=== PATIENT | female | born 1980 | race Caucasian/White ===

== ENCOUNTER 2016-11-20 10:11 | Outpatient (CLI) | payer MEDICAID ==
[~2016-11-20] VITALS: Ht 157.5 cm; Wt 104.2 kg
[~2016-11-20 10:11] MED LIST: DENIES
[2016-11-20 10:49] VITALS: Ht 157.5 cm; Wt 104.2 kg
[2016-11-20 10:50] VITALS: BP 132/81; PULSE 99
[2016-11-20] MEDS ORDERED: PNV11TAB PO (10:51)
--- NOTE | 2016-11-20 11:44 | RADRPT ---
PROCEDURE: Limited OB ultrasound CLINICAL INDICATION: Ruptured membranes TECHNIQUE: Sonographic evaluation to assess the ANU was performed. Transabdominal imaging of the gravid uterus was performed. COMPARISON: No prior exam is available for comparison. FINDINGS: There is a single live intrauterine with a heart rate of 166 bpm. position is cephalic. The placenta is posterior. The ANU measures 7.5 cm. IMPRESSION: The ANU measures 7.5 cm. RPTAT: HH .Corrina Donahue MD, MD Date Time Electronically viewed and signed by .Corrina Donahue MD, on 11/20/2016 11:44 .G/
[2016-11-20 11:45] LABS: ADD UMIC NO; UR ASCORBIC ACID 40 mg/dL (NEGATIVE); UR BILIRUBIN (Dip) NEGATIVE (NEGATIVE); UR BLOOD (Dip) NEGATIVE (NEGATIVE); UR CLARITY SLIGHTLY CLOUDY (CLEAR); UR COLOR YELLOW (YELLOW); UR GLUCOSE (Dip) NEGATIVE (NEGATIVE); UR KETONES (Dip) NEGATIVE (NEGATIVE); UR LEUKOCYTE ESTERASE (Dip) NEGATIVE Leu/ul (NEGATIVE); UR MUCUS FEW /HPF (NONE SEEN); UR NITRITE (Dip) NEGATIVE (NEGATIVE); UR RBC 1 /HPF (0-5); UR SPECIFIC GRAVITY (Dip) 1.023 (1.003-1.030); UR SQUAMOUS EPITHELIAL CELL FEW /HPF (FEW); UR TOTAL PROTEIN (Dip) NEGATIVE (NEGATIVE); UR UROBILINOGEN (Dip) NEGATIVE (NEGATIVE)
[2016-11-20] MEDS ORDERED: TERBUTALINE 1 ML ONE (12:40)
[2016-11-20] MEDS ORDERED: TERBUTALINE 1 MG/ML INJ SC ONE ×2 (13:00→15:30)
[2016-11-20] MEDS ORDERED: BETAMET NA PHOS/AC(6 MG/ML) 5ML INJ ONE (15:25)
[2016-11-20] MEDS ORDERED: BETAMET NA PHOS/AC(6 MG/ML) 5ML INJ IM ONE (15:30)
--- NOTE | 2016-11-20 16:35 | PN ---
Triage Information Date/Time November 20, 2016 Reason for visit: Uterine contractions Weeks of Gestation 36+ /Para 5 Para 4 Diabetes: none Hypertention: none Additional information 36-year-old female with contractions times over one day Has concern about leakage of fluid Objective Vital Signs Date Time Temp Pulse Resp B/P Pulse Ox O2 Delivery O2 Flow Rate FiO2 11/20/16 10:50 98.2 99 132/81 Heart Rate: 140's Heart Rate Comments reactive Exam long/ closed Results/Medications Results 24 hrs Laboratory Tests Test 11/20/16 11:00 11/20/16 11:52 Urine Color YELLOW Urine Clarity SLIGHTLY CLOUDY A Urine pH 6.0 Urine Specific [place] 1.023 Urine Ketones NEGATIVE Urine Nitrite NEGATIVE Urine Bilirubin NEGATIVE Urine Urobilinogen NEGATIVE Urine Leukocyte Esterase NEGATIVE Urine Microscopic RBC 1 Urine Microscopic WBC 1 Urine Squamous Epithelial Cells FEW Urine Mucus FEW A Urine Hemoglobin NEGATIVE Urine Glucose NEGATIVE Urine Total Protein NEGATIVE Membranes Rupture NEGATIVE Imaging Results The ANU measures 7.5 cm. Disposition: Discharge Assessment/Plan ROM plus test is negative, amniotic fluid index is 7.5 Uterine contractions subsided after subcutaneous terbutaline injection 2 We will DC home with follow-up as outpatient Referred back to OB triage for second dose of steroids, and ORIF uterine contractions or rupture of membranes are clear Continue bed on pelvic rest until delivery JANAY CLAY MD Nov 20, 2016 16:35
--- NOTE | 2016-11-20 18:59 | TRIAGE ---
OB Triage Datetime Report Generated by CPN: 11/20/2016 18:59 Datetime: 11/20/2016 16:44 Stage of : OB Triage Datetime: 11/20/2016 15:55 Labor Evaluation Frequency: 0 Monitor Mode: External Pattern: Normal: <= 5 Contractions in 10 Minutes Resting Tone [place]: Relaxed Heart Rate FHR Baseline Rate: 145 Monitor Mode: External US Variability: Moderate 6-25 bpm Accelerations: 10X10 Decelerations: None Category: Category I Pain Assessment Pain Scale: 1 Pain Presence: Intermittent Pain Type: Cramping Pain Location: Abdomen Pain Goal: 3 Pain Relief Measures: Comfort Measures Datetime: 11/20/2016 15:17 Stage of : OB Triage Datetime: 11/20/2016 14:46 Labor Evaluation Frequency: 0 Monitor Mode: External Pattern: Normal: <= 5 Contractions in 10 Minutes Resting Tone [place]: Relaxed Heart Rate FHR Baseline Rate: 145 Monitor Mode: External US Variability: Moderate 6-25 bpm Accelerations: 10X10 Decelerations: None Category: Category I Pain Assessment Pain Scale: 0 Pain Presence: None/Denies Pain Type: N/A Pain Goal: 3 Pain Relief Measures: Comfort Measures Datetime: 11/20/2016 13:46 Labor Evaluation Frequency: 0 Monitor Mode: External Pattern: Normal: <= 5 Contractions in 10 Minutes Resting Tone [place]: Relaxed Heart Rate FHR Baseline Rate: 145 Monitor Mode: External US Variability: Moderate 6-25 bpm Accelerations: 10X10 Decelerations: None Category: Category I Pain Assessment Pain Scale: 1 Pain Presence: Intermittent Pain Type: Cramping Pain Goal: 3 Pain Relief Measures: Comfort Measures Datetime: 11/20/2016 12:46 Labor Evaluation Frequency: 0 Monitor Mode: External Pattern: Normal: <= 5 Contractions in 10 Minutes Resting Tone [place]: Relaxed Contraction Comments: states intermittent cramps, no uc's noted on strip Heart Rate FHR Baseline Rate: 145 Monitor Mode: External US Variability: Moderate 6-25 bpm Accelerations: 10X10 Decelerations: None Category: Category I Pain Assessment Pain Scale: 2 Pain Presence: Intermittent Pain Type: Cramping Pain Location: Abdomen Pain Goal: 3 Pain Relief Measures: Comfort Measures Datetime: 11/20/2016 12:35 Vaginal Exam Dilatation (cms): 0.0 Station: -3 Exam By: s ashley Vaginal Bleeding: None Cervix, Consistency: Soft Cervix, Position: Posterior Presentation 'A': Cephalic Datetime: 11/20/2016 11:50 Labor Evaluation Frequency: 0 Monitor Mode: External Pattern: Normal: <= 5 Contractions in 10 Minutes Resting Tone [place]: Relaxed Heart Rate FHR Baseline Rate: 150 Monitor Mode: External US Variability: Moderate 6-25 bpm Accelerations: 10X10 Decelerations: None Category: Category I Pain Assessment Pain Scale: 3 Pain Presence: Intermittent Pain Type: Cramping Pain Location: Abdomen Pain Goal: 3 Pain Relief Measures: Comfort Measures Datetime: 11/20/2016 11:16 Stage of : OB Triage Datetime: 11/20/2016 10:45 Stage of : OB Triage Assessment Type: Triage Maternal Assessment Level of Consciousness: Fully Conscious DTR's/Clonus: DTRs 2+; No Clonus Headache: Denies Blurred Vision: No Respiratory Effort: Unlabored; Regular Rhythm; Equal Expansion Breath Sounds, Left: Clear and Equal Breath Sounds, Right: Clear and Equal Nausea/Vomiting: Denies RUQ Epigastric Pain: Denies Facial Edema: None Temperature Route: Axillary Fall Risk Assessment History of Falling: (0) No Secondary Diagnosis: (0) No Ambulatory Aid: (0) Bedrest/Nurse Assist IV Therapy: (0) No Gait: (0) Normal/Bedrest/Immobile Mental Status: (0) Oriented to Own Ability Fall Score: 0 Fall Risk Score Definition: No Risk: No action required Labor Evaluation Frequency: 6-7 Monitor Mode: External Duration (sec)2399: 40-60 Quality: Mild Pattern: Normal: <= 5 Contractions in 10 Minutes Resting Tone [place]: Relaxed Heart Rate FHR Baseline Rate: 150 Monitor Mode: External US Variability: Moderate 6-25 bpm Accelerations: 10X10 Decelerations: None Category: Category I Pain Assessment Pain Scale: 3 Pain Presence: Intermittent Pain Type: Cramping Pain Location: Abdomen Pain Goal: 3 Pain Relief Measures: Comfort Measures Datetime: 11/20/2016 10:44 Time of Arrival: 11/20/2016 09:45 EGA: 36.3 Arrived By: Ambulatory Arrived From: Home Chief Complaint: C/O UC'S 6-7, DENIES BLEEDING BUT POSSIBLE LEAKING OF FLUID Movement: Present Contractions: Occasional Rupture of Membranes: Unsure Vaginal Bleeding: None Vaginal Discharge: Denies Recent Sexual Intercouse: Denies Abdominal Trauma: Not Applicable Patient Complaints: Contractions; Cramping Time Provider Notified: 11/20/2016 11:16 Provider Notified: ARNOL Initial Plan: MONITOR, ROM PLUS, NITRAZINE, TERB X2, BETAMETHASONE
== END 2016-11-20 17:10 | disposition home or self-care (01) ==
LOC: OBT 10:11 → L-D 10:11 → OBT 17:10
PROVIDERS: ATTEND Obstetrics & Gynecology
DX: O62.9 Abnormality of forces of labor, unspecified (principal); Z3A.36 36 weeks gestation of pregnancy
CPT/HCPCS: 76815; 81001; 84112; J0702; J3105; 81003

== ENCOUNTER 2016-11-21 15:41 | Outpatient (CLI) | payer MEDICAID ==
[~2016-11-21] VITALS: Ht 157.5 cm; Wt 104.0 kg
[~2016-11-21 15:41] MED LIST changes: +PNV11TAB PO
[2016-11-21 16:06] VITALS: Ht 157.5 cm; Wt 104.0 kg
[2016-11-21 16:07] VITALS: BP 118/72; PULSE 88; RESP 18
[2016-11-21] MEDS ORDERED: BETAMET NA PHOS/AC(6 MG/ML) 5ML INJ IM ONE (16:30)
--- NOTE | 2016-11-21 16:43 | RADRPT ---
PROCEDURE: US OB biophysical profile. CLINICAL INDICATION: Decreased movements TECHNIQUE: Multiple sonographic images of the pelvis were obtained. The images were reviewed on a PACS workstation. COMPARISON: 11/20/2016 FINDINGS: There is a viable intrauterine gestation. There is a normal amount of amniotic fluid with an ANU = 12.3 cm. Cardiac activity is present with 161 beats per minute. The placenta is fundal. Biophysical profile: movement 2/2 tone 2/2. breathing 2/2 ANU 2/2 Total 09/26 IMPRESSION: Normal biophysical profile. Estimated gestational age of 36 weeks and 4 days. RPTAT:AAJJ Physician Estefania Date Time Electronically viewed and signed by Physician Estefania on 11/21/2016 16:43 /
--- NOTE | 2016-11-21 17:45 | PN ---
Triage Information Date/Time November 21, 2016 Reason for visit: DFM (Here for follow-up second dose of steroid injection complaint of decreased movement) Weeks of Gestation 36+ /Para 5 para 4 Diabetes: none Additional information Second dose of the steroids given Biophysical profile is 8 out of 8 The heart tones are reactive Objective Vital Signs Date Time Temp Pulse Resp B/P Pulse Ox O2 Delivery O2 Flow Rate FiO2 11/21/16 16:07 98.6 88 18 118/72 98 Room Air Heart Rate: 140's Heart Rate Comments Reactive Contractions: None Exam Deferred Results/Medications Imaging Results There is a viable intrauterine gestation. There is a normal amount of amniotic fluid with an ANU = 12.3 cm. Cardiac activity is present with 161 beats per minute. The placenta is fundal. Biophysical profile: movement 2/2 tone 2/2. breathing 2/2 ANU 2/2 Total 8/8 Normal biophysical profile. Estimated gestational age of 36 weeks and 4 days. Disposition: Discharge Assessment/Plan We will follow patient outpatient Patient was recommended to refer back to OB triage in case of rupture membrane or persistent uterine contractions JANAY CLAY MD Nov 21, 2016 17:45
--- NOTE | 2016-11-21 17:53 | TRIAGE ---
OB Triage Datetime Report Generated by CPN: 11/21/2016 17:53 Datetime: 11/21/2016 17:00 Stage of : OB Triage Level of Consciousness: Fully Conscious Frequency: 1UC/HR Monitor Mode: External Duration (sec)2399: 50 Quality: Mild Resting Tone [place]: Relaxed FHR Baseline Rate: 145 Monitor Mode: External US Variability: Moderate 6-25 bpm Accelerations: 15X15 Decelerations: None Category: Category I Pain Scale: 0 Pain Goal: 3 Membrane Status: Intact Vaginal Bleeding: None Datetime: 11/21/2016 16:02 Assessment Type: Triage Level of Consciousness: Fully Conscious DTR's/Clonus: DTRs 2+; No Clonus Headache: Denies Blurred Vision: No Respiratory Effort: Unlabored; Regular Rhythm; Equal Expansion Breath Sounds, Left: Clear and Equal Breath Sounds, Right: Clear and Equal Nausea/Vomiting: Denies RUQ Epigastric Pain: Denies Lower Extremities Edema: None Degree: None Upper Extremities Edema: None Degree: None Facial Edema: None History of Falling: (0) No Secondary Diagnosis: (0) No Ambulatory Aid: (0) Bedrest/Nurse Assist IV Therapy: (0) No Gait: (0) Normal/Bedrest/Immobile Mental Status: (0) Oriented to Own Ability Fall Score: 0 Fall Risk Score Definition: No Risk: No action required Datetime: 11/21/2016 15:59 Time of Arrival: 11/21/2016 15:35 EGA: 36.4 Arrived By: Ambulatory Arrived From: Home Chief Complaint: PT HERE C/O DFM AND 2ND DOSE OF BETAMETHASONE Movement: Decreased Contractions: Denies/Absent Rupture of Membranes: Denies Vaginal Bleeding: None Vaginal Discharge: Denies Recent Sexual Intercouse: Denies Abdominal Trauma: Not Applicable Patient Complaints: None Time Provider Notified: 11/21/2016 16:00 Provider Notified: ARNOL Initial Plan: BPP/BETAMETHASONE Datetime: 11/21/2016 15:55 Monitor Mode: External Monitor Mode: External US
== END 2016-11-21 18:00 | disposition home or self-care (01) ==
LOC: OBT 15:41 → L-D 15:44 → OBT 18:00
PROVIDERS: ATTEND Obstetrics & Gynecology
DX: O36.8130 Decreased fetal movements, third trimester, not applicable or unspecified (principal); Z3A.36 36 weeks gestation of pregnancy
CPT/HCPCS: 76818; 96372; J0702; Z7500; G0463

== ENCOUNTER 2016-12-07 04:00 | Inpatient (IN) | payer MEDICAID ==
[~2016-12-07] VITALS: Ht 157.5 cm; Wt 105.0 kg
[~2016-12-07 04:00] MED LIST changes: -DENIES
[2016-12-07] MEDS ORDERED: CARBOPROST 250 MCG INJ IM PRN ×2 (05:00→16:00)
[2016-12-07] MEDS ORDERED: OXYTOCIN 30 UNITS/LR 500 ML IV PRN ×2 (05:00→16:00)
[2016-12-07] MEDS ORDERED: LIDOCAINE 1% (MPF) 30 ML INJ INJ PRN (05:00)
[2016-12-07] MEDS ORDERED: OXYTOCIN 30 UNITS/LR 500 ML IV SCH (05:00)
[2016-12-07] MEDS ORDERED: HYDROCODONE/APAP (5/325) TAB PO PRN ×2 (05:00→16:00)
[2016-12-07] MEDS ORDERED: METHYLERGONOVINE 0.2 MG INJ IM PRN ×2 (05:00→16:00)
[2016-12-07] MEDS ORDERED: BUTORPHANOL 2 MG INJ IV PRN (05:00)
[2016-12-07] MEDS ORDERED: AMPICILLIN 2 GM/NS (PMX) 100 ML IV ONE (05:00)
[2016-12-07] MEDS ORDERED: MISOPROSTOL 200 MCG TAB PR PRN ×2 (05:00→16:00)
[2016-12-07 05:05] VITALS: Ht 157.5 cm; Wt 105.0 kg
[2016-12-07 05:07] VITALS: BP 132/82; PULSE 87; RESP 18
[2016-12-07] MEDS ORDERED: LACTATED RINGER'S 1,000 ML IV PRN (05:30)
[2016-12-07] MEDS: LACTATED RINGER'S 1,000 ML IV SCH ×3 (05:33→09:41)
[2016-12-07 06:13] LABS: BASOPHIL # 0.1 10^3/ul (0.0-0.1); BASOPHILS % 0.5 % (0.0-2.0); EOSINOPHILS # 0.1 10^3/ul (0.0-0.5); EOSINOPHILS % 0.9 % (0.0-7.0); HEMATOCRIT 43.5 % (37.0-47.0); HEMOGLOBIN 14.3 g/dl (12.0-16.0); LYMPHOCYTES # 2.5 10^3/ul (0.8-2.9); LYMPHOCYTES % 24.1 % (15.0-51.0); MEAN CORPUSCULAR HGB CONC 32.9 g/dl (32.0-37.0); MEAN CORPUSCULAR VOLUME 88.2 fl (82.0-101.0); MEAN PLATELET VOLUME 11.5 fl (7.4-10.4); MONOCYTE # 0.8 10^3/ul (0.3-0.9); MONOCYTES % 7.9 % (0.0-11.0); NEUTROPHIL # 6.7 10^3/ul (1.6-7.5); NEUTROPHILS % 66.1 % (39.0-77.0); PLATELET COUNT 234 10^3/UL (140-415); RED BLOOD COUNT 4.93 10^6/ul (4.20-5.40); RED CELL DISTRIBUTION WIDTH 14.7 % (11.5-14.5); WHITE BLOOD COUNT 10.2 10^3/ul (4.8-10.8)
--- NOTE | 2016-12-07 06:26 | TRIAGE ---
OB Triage Datetime Report Generated by CPN: 12/07/2016 06:25 Datetime: 12/07/2016 06:20 Monitor Mode: External Monitor Mode: External US Datetime: 12/07/2016 06:00 Maternal Assessment Level of Consciousness: Fully Conscious DTR's/Clonus: DTRs 2+; No Clonus Headache: Denies Blurred Vision: No Nausea/Vomiting: Denies RUQ Epigastric Pain: Denies Facial Edema: None Labor Evaluation Frequency: 3-5 Monitor Mode: External Duration (sec)2399: 60-100 Quality: Moderate Pattern: Normal: <= 5 Contractions in 10 Minutes Resting Tone [place]: Relaxed Interventions: Side to Side; Oxygen Applied Heart Rate FHR Baseline Rate: 150 Monitor Mode: External US Variability: Moderate 6-25 bpm Accelerations: 15X15 Decelerations: Late Category: Category II Pain Assessment Pain Scale: 6 Pain Presence: Intermittent Pain Type: Contraction Pain Location: Abdomen Pain Relief Measures: Comfort Measures Datetime: 12/07/2016 05:23 Assessment Type: Admission Assessment Vaginal Bleeding: None Maternal Assessment Level of Consciousness: Fully Conscious DTR's/Clonus: DTRs 2+; No Clonus Headache: Denies Blurred Vision: No Respiratory Effort: Unlabored; Regular Rhythm; Equal Expansion Breath Sounds, Left: Clear and Equal Breath Sounds, Right: Clear and Equal Nausea/Vomiting: Denies RUQ Epigastric Pain: Denies Lower Extremities Edema: Bilateral Lower Extremities Degree: 1+ Upper Extremities Edema: None Degree: None Facial Edema: None Fall Risk Assessment History of Falling: (0) No Secondary Diagnosis: (0) No Ambulatory Aid: (0) Bedrest/Nurse Assist IV Therapy: (20) Yes Gait: (0) Normal/Bedrest/Immobile Mental Status: (0) Oriented to Own Ability Fall Score: 20 Fall Risk Score Definition: No Risk: No action required Labor Evaluation Frequency: 2-5 Monitor Mode: External Duration (sec)2399: 60-100 Quality: Moderate Pattern: Normal: <= 5 Contractions in 10 Minutes Resting Tone [place]: Relaxed Heart Rate FHR Baseline Rate: 150 Monitor Mode: External US Variability: Minimal - Undetectable to <=5 bpm Accelerations: 15X15 Decelerations: Late Category: Category II Pain Assessment Pain Scale: 6 Pain Presence: Intermittent Pain Type: Contraction; Pressure Pain Location: Abdomen; Perineum Membrane Status: Intact Datetime: 12/07/2016 05:21 Vaginal Exam Dilatation (cms): 4.0 Effacement (%): 50 Station: -3 Exam By: LOU RN Datetime: 12/07/2016 05:18 Maternal Assessment Level of Consciousness: Fully Conscious DTR's/Clonus: DTRs 2+; No Clonus Headache: Denies Breath Sounds, Left: Clear and Equal Breath Sounds, Right: Clear and Equal Nausea/Vomiting: Denies RUQ Epigastric Pain: Denies Datetime: 12/07/2016 05:12 Monitor Mode: External Datetime: 12/07/2016 05:10 Monitor Mode: External US Datetime: 12/07/2016 04:50 Labor Evaluation Frequency: Irregular Monitor Mode: External Duration (sec)2399: 40-100 Quality: Moderate Pattern: Normal: <= 5 Contractions in 10 Minutes Resting Tone [place]: Relaxed Heart Rate FHR Baseline Rate: 145 Monitor Mode: External US Variability: Moderate 6-25 bpm Accelerations: 15X15 Decelerations: Variable Category: Category II Datetime: 12/07/2016 04:40 Vaginal Exam Dilatation (cms): 4.0 Datetime: 12/07/2016 04:35 Stage of : OB Triage Time of Arrival: 12/07/2016 04:35 EGA: 38.6 Arrived By: Wheelchair Arrived From: TRIAGE Datetime: 12/07/2016 04:34 Stage of : OB Triage Datetime: 12/07/2016 04:31 Vaginal Exam Dilatation (cms): 4.0 Effacement (%): 50 Station: -3 Exam By: FABY Erwin Vaginal Bleeding: Small Cervix, Consistency: Moderate Cervix, Position: Posterior Datetime: 12/07/2016 04:20 Stage of : OB Triage Monitor Mode: External US Comments: Audible decel per FABY Arredondo placing EFM Datetime: 12/07/2016 04:17 Stage of : OB Triage Assessment Type: Triage Time of Arrival: 12/07/2016 03:58 EGA: 38.6 Arrived By: Wheelchair Arrived From: Home Chief Complaint: UCs q5-10mins with vaginal spotting Movement: Present Contractions: Regular Contractions: q5-10mins Rupture of Membranes: Denies Vaginal Bleeding: Small Vaginal Discharge: Present Abdominal Trauma: Not Applicable Patient Complaints: Contractions; Cramping; Back Pain Time Provider Notified: 12/07/2016 04:35 Provider Notified: Initial Plan: EFM x2 Maternal Assessment Level of Consciousness: Fully Conscious DTR's/Clonus: DTRs 2+; No Clonus Headache: Denies Blurred Vision: No Respiratory Effort: Unlabored; Regular Rhythm; Equal Expansion Breath Sounds, Left: Clear and Equal Breath Sounds, Right: Clear and Equal Nausea/Vomiting: Denies RUQ Epigastric Pain: Denies Lower Extremities Edema: Bilateral Lower Extremities Degree: 1+ Upper Extremities Edema: None Degree: None Facial Edema: None Temperature Route: Oral Fall Risk Assessment History of Falling: (0) No Secondary Diagnosis: (0) No Ambulatory Aid: (0) Bedrest/Nurse Assist IV Therapy: (0) No Gait: (0) Normal/Bedrest/Immobile Mental Status: (0) Oriented to Own Ability Fall Score: 0 Fall Risk Score Definition: No Risk: No action required Pain Assessment Pain Scale: 5 Pain Presence: Intermittent Pain Type: Cramping; Contraction Pain Location: Abdomen; Back Pain Relief Measures: Comfort Measures Datetime: 11/21/2016 16:02 Fall Score: 0 Fall Risk Score Definition: No Risk: No action required Datetime: 11/21/2016 15:59 EGA: 36.4 Datetime: 11/20/2016 10:45 Fall Score: 0 Fall Risk Score Definition: No Risk: No action required Datetime: 11/20/2016 10:44 EGA: 36.3
[2016-12-07 06:33] LABS: INR 0.89; PT RATIO 0.9
[2016-12-07 06:48] LABS: ALBUMIN 3.9 g/dl (3.3-4.9); ALBUMIN/GLOBULIN RATIO 1.02; BILIRUBIN,INDIRECT 0.7 mg/dl (0-1.1); BILIRUBIN,TOTAL 0.7 mg/dl (0.2-1.3); CALCIUM 9.2 mg/dl (8.4-10.2); CREATININE 0.49 mg/dl (0.44-1.00); TOTAL PROTEIN 7.7 g/dl (6.1-8.1); URIC ACID 4.1 mg/dl (3.1-7.9)
[2016-12-07] MEDS ORDERED: LACTATED RINGER'S 1,000 ML IV ONE (07:43)
[2016-12-07 07:54] LABS: ADD UMIC YES; UR ASCORBIC ACID NEGATIVE (NEGATIVE); UR BACTERIA FEW /HPF (NONE SEEN); UR BILIRUBIN (Dip) NEGATIVE (NEGATIVE); UR BLOOD (Dip) 3+ mg/dL (NEGATIVE); UR CLARITY SLIGHTLY CLOUDY (CLEAR); UR COLOR YELLOW (YELLOW); UR GLUCOSE (Dip) NEGATIVE (NEGATIVE); UR KETONES (Dip) NEGATIVE (NEGATIVE); UR LEUKOCYTE ESTERASE (Dip) 1+ Leu/ul (NEGATIVE); UR NITRITE (Dip) NEGATIVE (NEGATIVE); UR RBC 2 /HPF (0-5); UR SPECIFIC GRAVITY (Dip) 1.005 (1.003-1.030); UR SQUAMOUS EPITHELIAL CELL FEW /HPF (FEW); UR TOTAL PROTEIN (Dip) NEGATIVE (NEGATIVE); UR UROBILINOGEN (Dip) NEGATIVE (NEGATIVE)
[2016-12-07] MEDS ORDERED: CITRIC ACID/NA CITRATE 30 ML CUP PO ONE (08:00)
[2016-12-07] MEDS ORDERED: FENTAnyl 2MCG/ML-ROPIV 0.2% 100 ML BAG EPI SCH (08:00)
[2016-12-07] MEDS ORDERED: TRIMETHOBENZAMIDE 100 MG/ML VIAL IM PRN (08:00)
[2016-12-07] MEDS ORDERED: DIPHENHYDRAMINE 50 MG INJ IV PRN (08:00)
[2016-12-07] MEDS ORDERED: morphine 2 MG INJ IV PRN (08:00)
[2016-12-07] MEDS ORDERED: NALOXONE (0.4 MG/ML) INJ IV PRN (08:00)
[2016-12-07] MEDS ORDERED: ACETAMINOPHEN 500 MG TAB PO PRN (08:00)
[2016-12-07] MEDS ORDERED: NALBUPHINE HCL (10 MG/1 ML) INJ IV PRN (08:00)
[2016-12-07] MEDS ORDERED: ONDANSETRON 4 MG INJ IV PRN (08:00)
[2016-12-07] MEDS ORDERED: ONDANSETRON 4 MG INJ IV ONE (08:00)
[2016-12-07] MEDS ORDERED: AMPICILLIN 1 GM/NS (PMX) 50 ML IV SCH (09:00)
[2016-12-07] MEDS ORDERED: MINERAL OIL LIGHT 10 ML VIAL TOP ONE (14:00)
--- NOTE | 2016-12-07 14:23 | HP ---
Date/Time of Note Date/Time of Note DATE: 12/07/16 TIME: 14:18 OB - History Hx of Present Free Text/Dictation Admitted in in early labor at 38 weeks and 6 days gestation Chief Complaint: Liver pains Last Menstrual Period: Mar 10, 2016 Estimated Due Date: Dec 15, 2016 : 5 Para: 4 Care: Good Care Ultrasounds: Normal mid trimester US Obstetrical Complications: None Medical Complications: None Past Family/Social History * Past Medical, Surgical, Family and Obstetric Histories reviewed from chart. Blood Type: O+ Rubella: immune RPR/VDRL: Negative GBS Status: Unknown HBsAG: Negative OB Admission Exam Vital Signs Vital Signs Vital Signs Date Time Temp Pulse Resp B/P Pulse Ox O2 Delivery O2 Flow Rate FiO2 12/07/16 05:07 98.1 87 18 132/82 Room Air Physical Exam HEENT: WNL Heart: Rhythm Normal Lungs: Clear, Equal Abdomen: WNL Extremities: Normal Reflexes: Normal Cervical Dilatation: 3cm Effacement: 75% Station: -3 Membranes: Intact Heart Rate: 130's Accelerations: Accelerations Present Decelerations: No Decelerations Varibility: Marked Contractions on Admission: < 5 Minutes Apart Date/Time Contractions Began: 12/05/2016 2300 Frequency of Contractions: q 3 Duration: >60 seconds Intensity: Firm Last 72 hours Lab Results CBC & BMP 12/07/16 05:00 Liver Function Test 12/07/16 05:00 Alanine Aminotransferase (ALT/SGPT) 20 Albumin 3.9 Alkaline Phosphatase 185 H Aspartate Amino Transf (AST/SGOT) 46 Direct Bilirubin 0.00 Total Protein 7.7 OB Assessment/Plan Other Assessment: term gestation labor pains Other plan: proceed with labor JANAY CLAY MD Dec 07, 2016 14:23
[2016-12-07] MEDS: OXYTOCIN 30 UNITS/LR 500 ML IV SCH ×2 (14:26→14:27)
--- NOTE | 2016-12-07 14:26 | LDN ---
Date/Time of Note Date/Time of Note DATE: 12/07/16 TIME: 14:24 Delivery Summary Normal spontaneous vaginal delivery of a viable over intact perineum Weeks of Gestation 38 weeks and 6 days Placenta Delivered: Spontaneously, Intact & Complete Meconium: Light Episiotomy: No Perineal laceration: 0 Anesthesia type: Epidural Estimated blood loss: 300 Sponge & Needle done & correct: Yes All needle counts correct: Yes Any foreign bodies felt in the: No Problems: Delivery Information Sex Sex: male Apgars 1 Minute: 9 5 Minute: 9 Suctioning Nose & mouth suctioned at niya: Yes Delee suction performed: No Umbilical Cord Umbilical cord with: 3 Vessels Cord presentations: no nuchal cord Cord Blood was obtained: Yes Mother & Baby Disposition Disposition Mom & Baby to Maternity; Good: Yes (Mother and baby were recovered in good condition) Mom transferred to: Other (Maternity) Baby to NICU: No JANAY CLAY MD Dec 07, 2016 14:26
[2016-12-07] MEDS ORDERED: LANOLIN 7 GM TUBE TOP PRN (16:00)
[2016-12-07] MEDS ORDERED: ZOLPIDEM 5 MG TAB PO PRN (16:00)
[2016-12-07] MEDS ORDERED: DIBUCAINE 1% 30 GM OINT PR PRN (16:00)
[2016-12-07] MEDS ORDERED: BENZOCAINE 20% 56 ML SPRAY TOP PRN (16:00)
[2016-12-07] MEDS ORDERED: WITCH HAZEL/GLYCERIN PAD PR PRN (16:00)
[2016-12-07 16:30] VITALS: BP 123/70; PULSE 92; RESP 18
[2016-12-07] MEDS: LACTATED RINGER'S 1,000 ML IV* SCH ×2 (16:30→18:51)
[2016-12-07 17:00] VITALS: BP 126/71; PULSE 88; RESP 19
[2016-12-07] MEDS: CEPHALEXIN 500 MG CAP PO SCH (17:58)
[2016-12-07 20:05] VITALS: BP 117/58; PULSE 99; RESP 18
[2016-12-07] MEDS: SENNA/DOCUSATE NA (8.6MG/50MG) TAB PO SCH (20:53)
[2016-12-07] MEDS: HYDROCODONE/APAP (5/325) TAB PO PRN (20:54)
[2016-12-07] MEDS: MAGNESIUM HYDROXIDE 30ML CUP PO SCH (20:54)
[2016-12-08] MEDS: CEPHALEXIN 500 MG CAP PO SCH ×4 (00:30→18:27)
[2016-12-08 03:50] VITALS: BP 121/71; PULSE 90; RESP 18
[2016-12-08 07:30] VITALS: BP 104/59; PULSE 80; RESP 16
[2016-12-08 08:54] LABS: BASOPHILS % 0.2 % (0.0-2.0); EOSINOPHILS # 0.1 10^3/ul (0.0-0.5); EOSINOPHILS % 1.1 % (0.0-7.0); HEMATOCRIT 40.3 % (37.0-47.0); HEMOGLOBIN 13.3 g/dl (12.0-16.0); LYMPHOCYTES # 2.2 10^3/ul (0.8-2.9); LYMPHOCYTES % 17.9 % (15.0-51.0); MEAN CORPUSCULAR HEMOGLOBIN 29.3 pg (29.0-33.0); MEAN CORPUSCULAR VOLUME 88.8 fl (82.0-101.0); MEAN PLATELET VOLUME 11.1 fl (7.4-10.4); MONOCYTE # 0.7 10^3/ul (0.3-0.9); MONOCYTES % 5.3 % (0.0-11.0); NEUTROPHIL # 9.2 10^3/ul (1.6-7.5); NEUTROPHILS % 74.9 % (39.0-77.0); PLATELET COUNT 195 10^3/UL (140-415); RED BLOOD COUNT 4.54 10^6/ul (4.20-5.40); RED CELL DISTRIBUTION WIDTH 14.8 % (11.5-14.5); WHITE BLOOD COUNT 12.2 10^3/ul (4.8-10.8)
[2016-12-08] MEDS: MAGNESIUM HYDROXIDE 30ML CUP PO SCH ×2 (09:40→21:59)
[2016-12-08] MEDS: SENNA/DOCUSATE NA (8.6MG/50MG) TAB PO SCH ×2 (09:40→21:59)
[2016-12-08 11:30] VITALS: BP 107/70; PULSE 87; RESP 18
[2016-12-08] MEDS: HYDROCODONE/APAP (5/325) TAB PO PRN ×3 (12:02→22:09)
[2016-12-08 16:20] VITALS: BP 126/75; PULSE 77; RESP 16
--- NOTE | 2016-12-08 18:07 | DS ---
Date/Time of Note Date/Time of Note Home next day DATE: 12/08/16 TIME: 18:04 Obstetrical Discharge Record Final Diagnosis Final Diagnosis: Term delivered Other Final Diagnosis Status post vaginal delivery Vaginal Delivery Obstetrical Delivery: Spontaneous Condition on Discharge Physical Assessment Last Vitals: See nurse's notes Voiding: Yes Bowel Movement: Yes Breast: Soft, non-tender, Filling Fundus: Firm Abdomen and Incision: Soft bowel sounds present Episiotomy: Not applicable Calf Tenderness: No Patient Condition: Good JANAY CLAY MD Dec 08, 2016 18:07
--- NOTE | 2016-12-08 18:09 | PD.PPDC ---
CLINICAL CARE COORDINATOR Discharge Instruction Provider Information Physician Information 36-year-old female had vaginal delivery Diagnosis Final Diagnosis: Status post vaginal delivery Condition Patient Condition: Good Diet Diet: Resume Regular Diet Activity/Restrictions Activity: Normal Activity May Shower Restrictions: Nothing in the Vagina Return to Work or School: Jan 22, 2017 Follow-up Follow-up with Physician: 4, Week/Weeks (In clinic) Return to clinic for OB Instructions: Breast Tenderness Depression Comment: Pelvic rest 6 weeks JANAY CLAY MD Dec 08, 2016 18:08
[2016-12-08] MEDS ORDERED: ACET325T40 PO (18:26)
[2016-12-08] MEDS ORDERED: ACETAMINOPHEN 325 MG TAB PO PRN (18:30)
[2016-12-08 20:00] VITALS: BP 132/79; PULSE 86; RESP 19
[2016-12-09] MEDS: CEPHALEXIN 500 MG CAP PO SCH ×3 (01:28→12:02)
[2016-12-09 04:45] VITALS: BP 108/65; PULSE 60; RESP 19
[2016-12-09 08:00] VITALS: BP 109/57; PULSE 73; RESP 18
[2016-12-09] MEDS: HYDROCODONE/APAP (5/325) TAB PO PRN (08:55)
[2016-12-09] MEDS: SENNA/DOCUSATE NA (8.6MG/50MG) TAB PO SCH (08:55)
[2016-12-09] MEDS: MAGNESIUM HYDROXIDE 30ML CUP PO SCH (08:55)
[2016-12-09] MEDS ORDERED: MEASLES,MUMPS,RUBELLA VACCINE INJ SC* ONE (09:00)
[2016-12-09] MEDS ORDERED: VARICELLA VACCINE LIVE/PF 1,350 UNIT/0.5 ML ML SC* ONE (09:00)
[2016-12-09] MEDS ORDERED: DIPHTH/TET/ACEL PERTUSS (ADULT) 0.5 ML VIAL IM* ONE (09:00)
== END 2016-12-09 14:20 | disposition home or self-care (01) | DRG 775 ==
LOC: L-D 04:00 → OBT 04:00 → L-D 04:35 → PP1 16:44
PROVIDERS: ADMIT Obstetrics & Gynecology; ATTEND Obstetrics & Gynecology
PROC: 10E0XZZ Delivery of Products of Conception, External Approach (ICD-10-PCS; principal; 2016-12-07)
PROC: 3E0P3VZ Introduction of Hormone into Female Reproductive, Percutaneous Approach (ICD-10-PCS; 2016-12-07)
DX: O99.214 Obesity complicating childbirth (principal); Z68.41 Body mass index [BMI] 40.0-44.9, adult; E66.01 Morbid (severe) obesity due to excess calories; Z3A.38 38 weeks gestation of pregnancy; Z37.0 Single live birth
CPT/HCPCS: 62319; 80053; 81001; 84560; 85025; 85610; 85730; 86592; 86900; 86901; 87340; 90715; 90716; 99464; G0463; J2405; J2590; J3010; J7120